=== PATIENT | male | born 1990 | race Caucasian/White ===

== ENCOUNTER 2017-07-31 07:08 | Emergency (ER) | payer OTHER, MEDICAID ==
[~2017-07-31] VITALS: Ht 185.4 cm; Wt 68.0 kg
[2017-07-31] MEDS ORDERED: XANAX (07:22)
[2017-07-31] MEDS ORDERED: LORAZEPAM 0.5 MG TABLET PO ONE (07:30)
[2017-07-31] MEDS ORDERED: ONDANSETRON ODT 4 MG TAB.RAPDIS SL ONE ×3 (07:30→08:30)
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
[2017-07-31] MEDS ORDERED: ONDANSETRON ODT 4 MG TAB.RAPDIS ONE ×3 (07:48→08:42)
[2017-07-31 07:49] LABS: *BILIRUBIN,URIN NEGATIVE (NEGATIVE); *BLOOD, URINE NEGATIVE (NEGATIVE); *CLARITY,URINE CLEAR (CLEAR); *COLOR,URINE YELLOW (YELLOW); *KETONES,URINE NEGATIVE (NEGATIVE); *PROTEIN,URINE NEGATIVE (NEGATIVE); *UROBILINOGEN,URINE 0.2 E.U./dl (NORMAL); LEUKOCYTE ESTERASE ,URINE NEGATIVE (NEGATIVE); NITRITE, URINE NEGATIVE (NEGATIVE); UGLUCOSE NEGATIVE (NEGATIVE)
[2017-07-31] MEDS ORDERED: LORAZEPAM 1 MG TABLET ONE (07:49)
[2017-07-31 07:50] LABS: BASOPHILS % (AUTO) 0.3 % (0.0-2.0); EOSINOPHILS # (AUTO) 0.1 K/uL (0.0-0.7); EOSINOPHILS % (AUTO) 1.9 % (0.0-7.0); HEMATOCRIT 37.5 % (40-50); HEMOGLOBIN 12.5 G/DL (14.0-18.0); LYMPHOCYTES # (AUTO) 1.9 K/UL (0.8-4.8); LYMPHOCYTES % (AUTO) 32.6 % (20.5-51.5); MEAN CORPUSCULAR HEMOGLOBIN 30.5 UUG (27.0-31.0); MEAN CORPUSCULAR HGB CONC 33 g/dL (32.0-37.0); MEAN CORPUSCULAR VOLUME 91.6 FL (82.0-92.0); MONOCYTES # (AUTO) 0.3 K/UL (0.1-1.30); MONOCYTES % (AUTO) 5.7 % (0.0-11.0); NEUTROPHILS # (AUTO) 3.5 K/UL (1.8-8.9); NEUTROPHILS % (AUTO) 59.5 % (38.5-71.5); PLATELET COUNT (AUTO) 224 K/UL (150-450); RED BLOOD CELL COUNT(AUTO) 4.09 MIL/UL (4.7-6.1); WHITE BLOOD COUNT (AUTO) 5.8 K/UL (4.0-11.2)
[2017-07-31 07:59] LABS: BACTERIA,URINE FEW /HPF (NONE SEEN); RBC,URINE 0-3 /HPF (0-3); SQUAMOUS EPITHELIAL CELL,UR FEW /HPF (NONE SEEN); WBC,URINE 0-3 /HPF (0-3)
[2017-07-31 08:00] LABS: *AMPHETAMINE, URINE NEGATIVE (NEGATIVE); *BARBITURATE, URINE NEGATIVE (NEGATIVE); *CANNABINOID, URINE NEGATIVE (NEGATIVE); *COCCAINE, URINE NEGATIVE (NEGATIVE); *OPIATE, URINE POSITIVE (NEGATIVE); *PHENCYCLIDINE SCREEN,URINE NEGATIVE (NEGATIVE)
[2017-07-31 08:02] LABS: CARBON DIOXIDE 31 mmol/L (21-32); CHLORIDE 101 mmol/L (98-107); CREATININE 0.8 mg/dL (0.6-1.3); GLUCOSE 96 mg/dL (74-106); UREA NITROGEN, BLOOD 16 mg/dL (7-18)
[2017-07-31 08:28] LABS: ETHANOL < 3 MG/DL (0-0)
--- NOTE | 2017-07-31 08:33 | NUR ---
Gave pt d/c instructions, verbalized understanding.
== END 2017-07-31 08:35 | disposition home or self-care (01) ==
LOC: ER 07:08
DX: T65.91XA Toxic effect of unspecified substance, accidental (unintentional), initial encounter (principal); Y92.89 Other specified places as the place of occurrence of the external cause
CPT/HCPCS: 36415; 80048; 80307; 81001; 85025; 93005; 99285; A4663; G0480; Q0162 ×3

== ENCOUNTER 2018-09-18 22:17 | Emergency (ER) | payer OTHER, MEDICAID ==
[~2018-09-18] VITALS: Ht 185.4 cm; Wt 68.0 kg
[~2018-09-18 22:17] MED LIST: XANAX
[2018-09-18] MEDS ORDERED: ONDANSETRON 4 MG/2 ML VIAL IV ONE (23:15)
[2018-09-18] MEDS ORDERED: HYDROMORPHONE 1 MG/1 ML DISP.SYRIN IV ONE (23:15)
[2018-09-18] MEDS ORDERED: HYDROMORPHONE 1 MG/1 ML DISP.SYRIN ONE (23:18)
[2018-09-18] MEDS ORDERED: ONDANSETRON 4 MG/2 ML VIAL ONE (23:19)
[2018-09-18 23:33] LABS: BASOPHILS # (AUTO) 0.1 K/uL (0.0-8.0); BASOPHILS % (AUTO) 0.7 % (0.0-2.0); EOSINOPHILS # (AUTO) 0.1 K/uL (0.0-0.7); HEMATOCRIT 39.2 % (36.7-47.1); HEMOGLOBIN 13.8 g/dL (12.5-16.3); LYMPHOCYTES # (AUTO) 3.6 K/uL (20.0-40.0); LYMPHOCYTES % (AUTO) 46.3 % (20.5-51.5); MEAN CORPUSCULAR HEMOGLOBIN 32.5 uug (23.8-33.4); MEAN CORPUSCULAR HGB CONC 35 g/dL (32.5-36.3); MEAN CORPUSCULAR VOLUME 92.4 fL (73.0-96.2); MONOCYTES # (AUTO) 0.3 K/uL (2.0-10.0); MONOCYTES % (AUTO) 4.2 % (0.0-11.0); NEUTROPHILS # (AUTO) 3.7 K/uL (1.8-8.9); NEUTROPHILS % (AUTO) 47.8 % (38.5-71.5); PLATELET COUNT (AUTO) 337 K/uL (152-348); RED BLOOD CELL COUNT(AUTO) 4.24 MIL/uL (4.06-5.63); WHITE BLOOD COUNT (AUTO) 7.8 K/uL (3.6-10.2)
[2018-09-18 23:54] LABS: CARBON DIOXIDE 27 mmol/L (21-32); CHLORIDE 104 mmol/L (98-107); CREATININE 0.9 mg/dL (0.6-1.3); GLUCOSE 87 mg/dL (74-106); POTASSIUM 3.9 mmol/L (3.5-5.1); UREA NITROGEN, BLOOD 13 mg/dL (7-18)
[2018-09-19] LABS: ALANINE AMINOTRANSFERASE 42 U/L (16-63); ALKALINE PHOSPHATASE 90 U/L (50-136); ASPARTATE AMINOTRANSFERASE 17 U/L (15-37); BILIRUBIN,DIRECT < 0.1 mg/dL (0.0-0.2); BILIRUBIN,TOTAL 0.2 mg/dL (0.2-1.0); LIPASE 109 U/L (73-393); TOTAL PROTEIN, SERUM 7.9 g/dL (6.4-8.2)
[2018-09-19] MEDS ORDERED: KETOROLAC TROMETHAMINE 30 MG INJ IVP ONE
[2018-09-19] MEDS ORDERED: METOCLOPRAMIDE HCL 10 MG/2 ML VIAL IV ONE
[2018-09-19 00:02] LABS: *BILIRUBIN,URIN NEGATIVE (NEGATIVE); *BLOOD, URINE NEGATIVE (NEGATIVE); *CLARITY,URINE CLEAR (CLEAR); *COLOR,URINE YELLOW (YELLOW); *KETONES,URINE NEGATIVE (NEGATIVE); *UROBILINOGEN,URINE 0.2 E.U./dl (NORMAL); LEUKOCYTE ESTERASE ,URINE NEGATIVE (NEGATIVE); NITRITE, URINE NEGATIVE (NEGATIVE); PH,URINE 7.5 (5.0-8.0); UGLUCOSE NEGATIVE (NEGATIVE)
[2018-09-19 00:04] LABS: BACTERIA,URINE NONE SEEN /HPF (NONE SEEN); RBC,URINE NONE SEEN /HPF (0-3); SQUAMOUS EPITHELIAL CELL,UR NONE SEEN /HPF (NONE SEEN); WBC,URINE NONE SEEN /HPF (0-3); YEAST,URINE NONE SEEN /HPF (NONE SEEN)
[2018-09-19] MEDS ORDERED: METOCLOPRAMIDE HCL 10 MG/2 ML VIAL ONE (00:05)
[2018-09-19] MEDS ORDERED: KETOROLAC TROMETHAMINE 30 MG INJ ONE (00:05)
--- NOTE | 2018-09-19 01:04 | NUR ---
Patient discharged to home in stable conditon. Written and verbal after care instructions given. Patient verbalizes understanding of instructions. Pt. d/c w/ prescription per MD orders, all d/c papers signed, IV/ID band removed, all belongings w/ pt., instructed not to drive ambulated off unit w/ steady gait, left w/ family in private vehicle, no acute distress,
== END 2018-09-19 01:07 | disposition home or self-care (01) ==
LOC: ER 22:17
DX: R10.9 Unspecified abdominal pain (principal); M54.9 Dorsalgia, unspecified; Z88.0 Allergy status to penicillin; Z88.1 Allergy status to other antibiotic agents; Z79.899 Other long term (current) drug therapy
CPT/HCPCS: 36415; 74176; 80048; 80076; 81001; 83690; 85025; 96374; 96375; 99284; J1170; J1885; J2405; J2765; A4663